=== PATIENT | female | born 1945 | race Caucasian/White ===

== ENCOUNTER 2023-06-13 21:34 | Inpatient (IN) | payer MEDICARE ==
[~2023-06-13] VITALS: Ht 162.6 cm; Wt 70.0 kg
[2023-06-13] MEDS ORDERED: SODIUM CHLORIDE 0.9% 1,000 ML IV ONE (21:45)
[2023-06-13] MEDS ORDERED: IOHEXOL 350 MG/ML 100 ML VIAL ONE (21:51)
[2023-06-13] MEDS ORDERED: SODIUM CHLORIDE 0.9% 100 ML ONE (21:51)
[2023-06-13 21:53] LABS: COVID AG,FIA SOURCE NASAL SWAB
[2023-06-13 22:21] LABS: ANION GAP 9 mmol/L (8-16); CALCIUM, TOTAL 8.4 mg/dL (8.8-10.5); CARBON DIOXIDE 25 mmol/L (22-29); CHLORIDE 107 mmol/L (98-107); CREATININE 0.73 mg/dL (0.60-1.30); GLOMERULAR FILTR. RATE CALC > 60 mL/min (>60); GLUCOSE,RANDOM 144 mg/dL (70-110); POTASSIUM 3.4 mmol/L (3.5-5.1); SODIUM SERUM 141 mmol/L (136-145); UREA NITROGEN, BLOOD 12 mg/dL (7-18)
[2023-06-13 22:24] LABS: SARS-COV2 (COVID) ANTIGEN,FIA Negative (Negative)
[2023-06-13 22:24] LABS: B-TYPE NATRIURETIC PEPTIDE 105 pg/mL (0-100)
[2023-06-13 22:27] LABS: PROTHROMBIN TIME 10.8 SEC (9.4-11.6)
[2023-06-13 22:45] LABS: ALANINE AMINOTRANSFERASE 13 U/L (12-78); ALKALINE PHOSPHATASE 81 U/L (46-116); ASPARTATE AMINOTRANSFERASE 17 U/L (15-37); BILIRUBIN,TOTAL 0.3 mg/dL (0.1-1.0); CREATINE KINASE, TOTAL ONLY 92 U/L (26-192); TOTAL PROTEIN, SERUM 5.7 g/dL (6.4-8.2)
[2023-06-13 22:49] LABS: TROPONIN I-HIGH SENSITIVITY 9 ng/L (<51)
[2023-06-13 23:14] LABS: BASOPHILS % (AUTO) 1.3 % (0.0-2.0); HEMATOCRIT 32.5 % (36-46); HEMOGLOBIN 10.8 g/dL (12.0-16.0); LYMPHOCYTES # (AUTO) 2.6 K/uL (1.0-4.8); LYMPHOCYTES % (AUTO) 31.8 % (22.0-44.0); MEAN CORPUSCULAR HEMOGLOBIN 29.2 pg (26.0-34.0); MEAN CORPUSCULAR HGB CONC 33.2 G/dL (31.0-37.0); MEAN CORPUSCULAR VOLUME 88 fL (80-100); MONOCYTES # (AUTO) 0.8 K/uL (0.1-1.0); MONOCYTES % (AUTO) 10.3 % (2.0-9.0); NEUTROPHILS # (AUTO) 4.4 K/uL (1.8-7.7); NEUTROPHILS % (AUTO) 54.6 % (40.0-70.0); PLATELET COUNT (AUTO) 160 K/uL (150-450); RED BLOOD CELL COUNT(AUTO) 3.69 MIL/uL (4.00-5.20); RED CELL DISTRIBUTION WIDTH 17.5 % (11.5-14.5)
[2023-06-13] MEDS ORDERED: INSLAN SQ (23:39)
[2023-06-13] MEDS ORDERED: SIMV-259 PO (23:39)
[2023-06-13] MEDS ORDERED: BENZ-227 PO (23:39)
[2023-06-13] MEDS ORDERED: LISI-892 PO (23:39)
[2023-06-13] MEDS ORDERED: GUAI5LIQ PO (23:39)
[2023-06-13] MEDS ORDERED: SODI45SP10 NASAL (23:39)
[2023-06-13] MEDS ORDERED: INSU100V SQ (23:39)
[2023-06-14] VITALS (7 sets, daily range): BP systolic 94–134; BP diastolic 54–71; PULSE 94–116; RESP 16–18; TEMP 98–98.6; O2SAT 99
[2023-06-14] MEDS ORDERED: ACETAMINOPHEN 325 MG TABLET PO PRN (01:15)
[2023-06-14] MEDS ORDERED: 0.9% SODIUM CHLORIDE 10 ML SYRINGE IVP PRN (01:15)
[2023-06-14] MEDS ORDERED: ONDANSETRON HCL 4 MG/2 ML VIAL IVP PRN ×2 (01:15)
[2023-06-14] MEDS: RINGERS SOLUTION,LACTATED 1,000 ML IV SCH ×2 (01:23→15:16)
[2023-06-14 02:14] LABS: TROPONIN I-HIGH SENSITIVITY 182 ng/L (<51)
[2023-06-14 02:46] LABS: GLUCOMETER DEV NAME(LOC) ERT.5; GLUCOSE,POINT OF CARE 134 MG/DL (70-110)
[2023-06-14] MEDS ORDERED: HEPARIN SODIUM,PORCINE 5,000 UNITS/ML VIAL IVP PRN (06:30)
[2023-06-14] MEDS ORDERED: ASPIRIN 81 MG CHEWABLE TABLET PO ONE (06:30)
[2023-06-14] MEDS ORDERED: ATORVASTATIN CALCIUM 40 MG TABLET PO ONE (06:30)
[2023-06-14] MEDS ORDERED: HEPARIN SODIUM,PORCINE 5,000 UNITS/ML VIAL IVP ONE (06:30)
[2023-06-14] MEDS: METOPROLOL TARTRATE 25 MG TABLET PO SCH ×2 (06:50→21:05)
[2023-06-14 07:03] LABS: BASOPHILS % (AUTO) 0.4 % (0.0-2.0); EOSINOPHILS % (AUTO) 0 % (1.0-6.0); HEMATOCRIT 35.8 % (36-46); HEMOGLOBIN 11.7 g/dL (12.0-16.0); LYMPHOCYTES # (AUTO) 1.2 K/uL (1.0-4.8); LYMPHOCYTES % (AUTO) 8.9 % (22.0-44.0); MEAN CORPUSCULAR HEMOGLOBIN 28.7 pg (26.0-34.0); MEAN CORPUSCULAR HGB CONC 32.8 G/dL (31.0-37.0); MEAN CORPUSCULAR VOLUME 88 fL (80-100); MONOCYTES # (AUTO) 0.9 K/uL (0.1-1.0); MONOCYTES % (AUTO) 6.8 % (2.0-9.0); NEUTROPHILS # (AUTO) 11.3 K/uL (1.8-7.7); NEUTROPHILS % (AUTO) 83.9 % (40.0-70.0); PLATELET COUNT (AUTO) 167 K/uL (150-450); RED BLOOD CELL COUNT(AUTO) 4.09 MIL/uL (4.00-5.20); RED CELL DISTRIBUTION WIDTH 16.8 % (11.5-14.5); WHITE BLOOD COUNT (AUTO) 13.5 K/uL (4.5-11.0)
[2023-06-14] MEDS: HEPARIN SODIUM 25000 UNITS/D5W 250 ML IV PRN (07:10)
[2023-06-14 07:33] LABS: TROPONIN I-HIGH SENSITIVITY 1156 ng/L (<51)
[2023-06-14] MEDS ORDERED: MAGNESIUM SULFATE 2 GM/WATER 50 ML IV PRN (08:00)
[2023-06-14] MEDS ORDERED: POTASSIUM CHLORIDE 20 MEQ ER TABLET PO PRN (08:00)
[2023-06-14] MEDS ORDERED: HEPARIN SODIUM,PORCINE 5,000 UNITS/ML VIAL SQ SCH (08:00)
[2023-06-14] MEDS ORDERED: POTASSIUM CHL 10 MEQ/WATER 50 ML IV PRN (08:00)
[2023-06-14] MEDS ORDERED: MAGNESIUM SULFATE 4 GM/WATER 100 ML IV PRN (08:00)
[2023-06-14] MEDS ORDERED: DEXTROSE 50%-WATER 25 GM/50 ML SYRINGE IVP PRN (08:15)
[2023-06-14] MEDS: DOCUSATE SODIUM 100 MG CAPSULE PO SCH ×2 (09:00→21:00)
[2023-06-14 10:51] LABS: TROPONIN I-HIGH SENSITIVITY 2625 ng/L (<51)
[2023-06-14] MEDS: INSULIN LISPRO 100 UNITS/ML SQ PRN ×3 (14:16→23:24)
[2023-06-14 14:41] LABS: TROPONIN I-HIGH SENSITIVITY 2115 ng/L (<51)
[2023-06-14 16:52] LABS: GLUCOMETER DEV NAME(LOC) 5S.2C; GLUCOSE,POINT OF CARE 315 MG/DL (70-110)
[2023-06-14] MEDS: HEPARIN SODIUM,PORCINE 5,000 UNITS/ML VIAL IVP PRN (20:58)
[2023-06-14 23:31] LABS: GLUCOMETER DEV NAME(LOC) 5N.1C; GLUCOSE,POINT OF CARE 247 MG/DL (70-110)
[2023-06-15] VITALS (15 sets, daily range): BP systolic 109–134; BP diastolic 55–73; PULSE 74–88; RESP 16–20; TEMP 97.8–98.8; O2SAT 92–100
[2023-06-15] MEDS: BUDESONIDE 0.5 MG/2 ML NEB SOLUTION NEB SCH ×3 (00:06→20:59)
[2023-06-15 06:06] LABS: GLUCOMETER DEV NAME(LOC) 5S.1B; GLUCOSE,POINT OF CARE 226 MG/DL (70-110)
[2023-06-15] MEDS: INSULIN LISPRO 100 UNITS/ML SQ PRN ×4 (06:52→21:03)
[2023-06-15 06:59] LABS: BASOPHILS % (AUTO) 0.9 % (0.0-2.0); EOSINOPHILS % (AUTO) 2.1 % (1.0-6.0); HEMOGLOBIN 9.7 g/dL (12.0-16.0); LYMPHOCYTES # (AUTO) 1.8 K/uL (1.0-4.8); LYMPHOCYTES % (AUTO) 15.1 % (22.0-44.0); MEAN CORPUSCULAR HEMOGLOBIN 29.1 pg (26.0-34.0); MEAN CORPUSCULAR HGB CONC 33.4 G/dL (31.0-37.0); MEAN CORPUSCULAR VOLUME 87 fL (80-100); MONOCYTES % (AUTO) 8.3 % (2.0-9.0); NEUTROPHILS # (AUTO) 8.6 K/uL (1.8-7.7); NEUTROPHILS % (AUTO) 73.6 % (40.0-70.0); PLATELET COUNT (AUTO) 120 K/uL (150-450); RED BLOOD CELL COUNT(AUTO) 3.33 MIL/uL (4.00-5.20); RED CELL DISTRIBUTION WIDTH 17.1 % (11.5-14.5); WHITE BLOOD COUNT (AUTO) 11.7 K/uL (4.5-11.0)
[2023-06-15 07:21] LABS: CHOL/HDL RATIO 2.1 (3.9-5.7)
[2023-06-15 07:23] LABS: ANION GAP 7 mmol/L (8-16); CALCIUM, TOTAL 7.8 mg/dL (8.8-10.5); CARBON DIOXIDE 24 mmol/L (22-29); CHLORIDE 105 mmol/L (98-107); CREATININE 0.68 mg/dL (0.60-1.30); GLOMERULAR FILTR. RATE CALC > 60 mL/min (>60); GLUCOSE,RANDOM 200 mg/dL (70-110); POTASSIUM 3.7 mmol/L (3.5-5.1); SODIUM SERUM 136 mmol/L (136-145); UREA NITROGEN, BLOOD 15 mg/dL (7-18)
[2023-06-15] MEDS: ASPIRIN 81 MG CHEWABLE TABLET PO SCH (08:35)
[2023-06-15] MEDS: METOPROLOL TARTRATE 25 MG TABLET PO SCH ×2 (08:35→21:00)
[2023-06-15] MEDS: ATORVASTATIN CALCIUM 20 MG TABLET PO SCH (08:35)
[2023-06-15] MEDS: DOCUSATE SODIUM 100 MG CAPSULE PO SCH ×2 (08:35→21:00)
[2023-06-15] MEDS: MULTIVITAMINS WITH MINERALS, THERAPEUTIC TABLET PO SCH (08:35)
[2023-06-15] MEDS: RINGERS SOLUTION,LACTATED 1,000 ML IV SCH ×2 (08:36→21:11)
[2023-06-15 08:51] LABS: GLUCOMETER DEV NAME(LOC) 5N.2C; GLUCOSE,POINT OF CARE 211 MG/DL (70-110)
[2023-06-15] MEDS ORDERED: ATORVASTATIN CALCIUM 40 MG TABLET PO SCH (09:00)
[2023-06-15] MEDS: MAGNESIUM OXIDE 400 MG TABLET PO PRN ×2 (11:08→20:59)
[2023-06-15 12:25] LABS: APPEARANCE,URINE CLEAR (CLEAR); BILIRUBIN,URINE NEGATIVE (NEGATIVE); COLOR,URINE LIGHT YELLOW (YELLOW); GLUCOSE, URINE (UA) 300-500 mg/dL (NEGATIVE); KETONES,URINE NEGATIVE (NEGATIVE); LEUKOCYTE ESTERASE ,URINE NEGATIVE (NEGATIVE); NITRATE,URINE NEGATIVE (NEGATIVE); OCCULT BLOOD,URINE SMALL (NEGATIVE); PH,URINE 5.5 (5.0-8.0); PROTEIN,URINE 100-200,SEE CONFIRM mg/dL (NEGATIVE); SPECIFIC GRAVITIY, URINE 1.008 (1.003-1.030); UROBILINOGEN,URINE <=1.0 mg/dL (<=1.0)
[2023-06-15 12:37] LABS: ALCOHOL, URINE DRUG SCREEN NEGATIVE (NEGATIVE); AMPHET/METH SCREEN,URINE NEGATIVE (NEGATIVE); BARBITURATE SCREEN, URINE NEGATIVE (NEGATIVE); BENZODIAZEPINES SCREEN,URINE NEGATIVE (NEGATIVE); CANNABINOID SCREEN,URINE NEGATIVE (NEGATIVE); COCAINE SCREEN,URINE NEGATIVE (NEGATIVE); METHADONE SCREEN, URINE NEGATIVE (NEGATIVE); OPIATE SCREEN,URINE NEGATIVE (NEGATIVE); PHENCYCLIDINE SCREEN,URINE NEGATIVE (NEGATIVE)
[2023-06-15 12:45] LABS: PH,URINE DRUG SCREEN 5.5 (5.0-8.0)
[2023-06-15] MEDS: HEPARIN SODIUM,PORCINE 5,000 UNITS/ML VIAL IVP PRN (12:46)
[2023-06-15 13:25] LABS: GLUCOMETER DEV NAME(LOC) 5N.2C; GLUCOSE,POINT OF CARE 295 MG/DL (70-110)
[2023-06-15 13:34] LABS: BACTERIA,URINE None Seen /HPF (None Seen); RBC,URINE 0-2 /HPF (0-2); SQUAMOUS EPITHELIAL CELL,UR Few /LPF (None Seen); SULFOSALICYLIC ACID,URINE 2+ (Negative); WBC,URINE None Seen /HPF (0-5)
[2023-06-15 18:21] LABS: GLUCOMETER DEV NAME(LOC) 5S.1B; GLUCOSE,POINT OF CARE 211 MG/DL (70-110)
[2023-06-16] VITALS (9 sets, daily range): BP systolic 112–130; BP diastolic 54–70; PULSE 66–82; RESP 16–19; TEMP 98–98.7; O2SAT 95–98
[2023-06-16] MEDS: HEPARIN SODIUM 25000 UNITS/D5W 250 ML IV PRN (01:04)
[2023-06-16 06:41] LABS: GLUCOMETER DEV NAME(LOC) 5N.1C; GLUCOSE,POINT OF CARE 253 MG/DL (70-110)
[2023-06-16] MEDS: ASPIRIN 81 MG CHEWABLE TABLET PO SCH (08:31)
[2023-06-16] MEDS: MULTIVITAMINS WITH MINERALS, THERAPEUTIC TABLET PO SCH (08:32)
[2023-06-16] MEDS: ATORVASTATIN CALCIUM 20 MG TABLET PO SCH (08:32)
[2023-06-16] MEDS: METOPROLOL TARTRATE 25 MG TABLET PO SCH ×2 (08:32→22:05)
[2023-06-16] MEDS: DOCUSATE SODIUM 100 MG CAPSULE PO SCH ×2 (08:38→21:00)
[2023-06-16] MEDS: MAGNESIUM OXIDE 400 MG TABLET PO PRN ×2 (08:43→17:59)
[2023-06-16] MEDS: HEPARIN SODIUM,PORCINE 5,000 UNITS/ML VIAL IVP PRN (08:52)
[2023-06-16 09:06] LABS: GLUCOMETER DEV NAME(LOC) 5N.2C; GLUCOSE,POINT OF CARE 135 MG/DL (70-110)
[2023-06-16] MEDS: BUDESONIDE 0.5 MG/2 ML NEB SOLUTION NEB SCH ×2 (09:17→19:26)
[2023-06-16] MEDS: RINGERS SOLUTION,LACTATED 1,000 ML IV SCH (11:41)
[2023-06-16] MEDS: INSULIN LISPRO 100 UNITS/ML SQ PRN ×3 (12:17→22:30)
[2023-06-16 12:57] LABS: GLUCOMETER DEV NAME(LOC) 5N.1C; GLUCOSE,POINT OF CARE 330 MG/DL (70-110)
[2023-06-16 18:17] LABS: GLUCOMETER DEV NAME(LOC) 5N.1C; GLUCOSE,POINT OF CARE 198 MG/DL (70-110)
[2023-06-16 22:56] LABS: GLUCOMETER DEV NAME(LOC) 5S.1B; GLUCOSE,POINT OF CARE 329 MG/DL (70-110)
[2023-06-17] VITALS (11 sets, daily range): BP systolic 98–136; BP diastolic 59–72; PULSE 62–78; RESP 16–20; TEMP 98–98.8; O2SAT 92–98
[2023-06-17] MEDS: RINGERS SOLUTION,LACTATED 1,000 ML IV SCH ×2 (01:20→15:53)
[2023-06-17] MEDS: INSULIN LISPRO 100 UNITS/ML SQ PRN ×3 (06:58→21:35)
[2023-06-17] MEDS: DOCUSATE SODIUM 100 MG CAPSULE PO SCH ×2 (08:19→21:37)
[2023-06-17] MEDS: ATORVASTATIN CALCIUM 20 MG TABLET PO SCH (08:19)
[2023-06-17] MEDS: MAGNESIUM OXIDE 400 MG TABLET PO PRN ×3 (08:19→15:52)
[2023-06-17] MEDS: MULTIVITAMINS WITH MINERALS, THERAPEUTIC TABLET PO SCH (08:19)
[2023-06-17] MEDS: ASPIRIN 81 MG CHEWABLE TABLET PO SCH (08:20)
[2023-06-17] MEDS: METOPROLOL TARTRATE 25 MG TABLET PO SCH ×2 (08:20→21:38)
[2023-06-17] MEDS: BUDESONIDE 0.5 MG/2 ML NEB SOLUTION NEB SCH ×2 (09:02→19:24)
[2023-06-17 09:08] LABS: ANION GAP 6 mmol/L (8-16); CALCIUM, TOTAL 8.4 mg/dL (8.8-10.5); CARBON DIOXIDE 28 mmol/L (22-29); CHLORIDE 104 mmol/L (98-107); CREATININE 0.64 mg/dL (0.60-1.30); GLOMERULAR FILTR. RATE CALC > 60 mL/min (>60); GLUCOSE,RANDOM 223 mg/dL (70-110); POTASSIUM 3.6 mmol/L (3.5-5.1); SODIUM SERUM 138 mmol/L (136-145); UREA NITROGEN, BLOOD 15 mg/dL (7-18)
[2023-06-17 09:11] LABS: BASOPHILS % (AUTO) 1.2 % (0.0-2.0); EOSINOPHILS % (AUTO) 3.8 % (1.0-6.0); HEMATOCRIT 28.9 % (36-46); HEMOGLOBIN 9.6 g/dL (12.0-16.0); LYMPHOCYTES % (AUTO) 23.3 % (22.0-44.0); MEAN CORPUSCULAR HEMOGLOBIN 29.2 pg (26.0-34.0); MEAN CORPUSCULAR HGB CONC 33.4 G/dL (31.0-37.0); MEAN CORPUSCULAR VOLUME 87 fL (80-100); MONOCYTES % (AUTO) 11.9 % (2.0-9.0); NEUTROPHILS # (AUTO) 5.1 K/uL (1.8-7.7); NEUTROPHILS % (AUTO) 59.8 % (40.0-70.0); PLATELET COUNT (AUTO) 130 K/uL (150-450); RED CELL DISTRIBUTION WIDTH 16.9 % (11.5-14.5); WHITE BLOOD COUNT (AUTO) 8.5 K/uL (4.5-11.0)
[2023-06-17] MEDS: HEPARIN SODIUM 25000 UNITS/D5W 250 ML IV PRN (17:45)
[2023-06-17 20:36] LABS: GLUCOMETER DEV NAME(LOC) 5N.2C; GLUCOSE,POINT OF CARE 145 MG/DL (70-110)
[2023-06-17 21:31] LABS: GLUCOMETER DEV NAME(LOC) 5S.1B; GLUCOSE,POINT OF CARE 272 MG/DL (70-110)
[2023-06-17] MEDS: INSULIN GLARGINE,HUM.REC.ANLOG 100 UNITS/ML SQ SCH (21:37)
[2023-06-17 22:16] LABS: GLUCOMETER DEV NAME(LOC) 5N.1C; GLUCOSE,POINT OF CARE 217 MG/DL (70-110)
[2023-06-17 22:16] LABS: GLUCOMETER DEV NAME(LOC) 5N.1C; GLUCOSE,POINT OF CARE 232 MG/DL (70-110)
[2023-06-18] VITALS (10 sets, daily range): BP systolic 98–116; BP diastolic 57–70; PULSE 74–102; RESP 14–20; TEMP 98.1–101.4; O2SAT 90–97
[2023-06-18] MEDS: INSULIN LISPRO 100 UNITS/ML SQ PRN ×3 (06:13→20:48)
[2023-06-18 06:56] LABS: BASOPHILS % (AUTO) 1.2 % (0.0-2.0); EOSINOPHILS % (AUTO) 3.5 % (1.0-6.0); HEMATOCRIT 28.3 % (36-46); HEMOGLOBIN 9.5 g/dL (12.0-16.0); LYMPHOCYTES # (AUTO) 1.8 K/uL (1.0-4.8); LYMPHOCYTES % (AUTO) 23.3 % (22.0-44.0); MEAN CORPUSCULAR HEMOGLOBIN 29.4 pg (26.0-34.0); MEAN CORPUSCULAR HGB CONC 33.7 G/dL (31.0-37.0); MEAN CORPUSCULAR VOLUME 87 fL (80-100); MONOCYTES % (AUTO) 12.4 % (2.0-9.0); NEUTROPHILS # (AUTO) 4.6 K/uL (1.8-7.7); NEUTROPHILS % (AUTO) 59.6 % (40.0-70.0); PLATELET COUNT (AUTO) 140 K/uL (150-450); RED BLOOD CELL COUNT(AUTO) 3.24 MIL/uL (4.00-5.20); RED CELL DISTRIBUTION WIDTH 17.1 % (11.5-14.5); WHITE BLOOD COUNT (AUTO) 7.8 K/uL (4.5-11.0)
[2023-06-18 07:11] LABS: ANION GAP 7 mmol/L (8-16); CARBON DIOXIDE 27 mmol/L (22-29); CHLORIDE 105 mmol/L (98-107); CREATININE 0.68 mg/dL (0.60-1.30); GLOMERULAR FILTR. RATE CALC > 60 mL/min (>60); GLUCOSE,RANDOM 154 mg/dL (70-110); POTASSIUM 3.7 mmol/L (3.5-5.1); SODIUM SERUM 139 mmol/L (136-145); UREA NITROGEN, BLOOD 14 mg/dL (7-18)
[2023-06-18 07:36] LABS: TROPONIN I-HIGH SENSITIVITY 235 ng/L (<51)
[2023-06-18] MEDS: BUDESONIDE 0.5 MG/2 ML NEB SOLUTION NEB SCH ×2 (08:04→20:22)
[2023-06-18] MEDS: METOPROLOL TARTRATE 25 MG TABLET PO SCH ×2 (09:00→20:40)
[2023-06-18] MEDS: RINGERS SOLUTION,LACTATED 1,000 ML IV SCH (09:51)
[2023-06-18] MEDS: MULTIVITAMINS WITH MINERALS, THERAPEUTIC TABLET PO SCH (09:51)
[2023-06-18] MEDS: ASPIRIN 81 MG CHEWABLE TABLET PO SCH (09:52)
[2023-06-18] MEDS: ATORVASTATIN CALCIUM 20 MG TABLET PO SCH (09:52)
[2023-06-18] MEDS: DOCUSATE SODIUM 100 MG CAPSULE PO SCH ×2 (09:52→20:39)
[2023-06-18 10:13] LABS: PROTHROMBIN TIME 10.2 SEC (9.4-11.6)
[2023-06-18] MEDS ORDERED: GELATIN SPONGE,ABSORBABLE 12-7 MM TP ONE ×2 (13:36→14:33)
[2023-06-18] MEDS ORDERED: FentaNYL CITRATE PF 100 MCG/2 ML VIAL ONE (14:04)
[2023-06-18] MEDS ORDERED: LIDOCAINE/PF 1% 30 ML VIAL ONE ×2 (14:04→15:13)
[2023-06-18] MEDS ORDERED: MIDAZOLAM HCL 2 MG/2 ML VIAL ONE (14:04)
[2023-06-18] MEDS ORDERED: FentaNYL CITRATE PF 100 MCG/2 ML VIAL IVP ONE (15:30)
[2023-06-18] MEDS ORDERED: LIDOCAINE 1% 30 ML/SOD BICARB 8.4% 4 ML SQ ONE (15:30)
[2023-06-18] MEDS ORDERED: MIDAZOLAM HCL 2 MG/2 ML VIAL IVP ONE (15:30)
[2023-06-18] MEDS: HEPARIN SODIUM 25000 UNITS/D5W 250 ML IV PRN (17:20)
[2023-06-18] MEDS: INSULIN GLARGINE,HUM.REC.ANLOG 100 UNITS/ML SQ SCH (20:43)
[2023-06-18] MEDS: ACETAMINOPHEN 325 MG TABLET PO PRN (22:50)
[2023-06-18 23:41] LABS: GLUCOMETER DEV NAME(LOC) 5S.1B; GLUCOSE,POINT OF CARE 121 MG/DL (70-110)
[2023-06-18 23:41] LABS: GLUCOMETER DEV NAME(LOC) 5S.1B; GLUCOSE,POINT OF CARE 143 MG/DL (70-110)
[2023-06-19] VITALS (20 sets, daily range): BP systolic 97–141; BP diastolic 48–81; PULSE 70–88; RESP 14–18; TEMP 98.2–100.9; O2SAT 96–100
[2023-06-19 00:51] LABS: GLUCOMETER DEV NAME(LOC) 5N.2C; GLUCOSE,POINT OF CARE 158 MG/DL (70-110)
[2023-06-19 00:51] LABS: GLUCOMETER DEV NAME(LOC) 5N.2C; GLUCOSE,POINT OF CARE 207 MG/DL (70-110)
[2023-06-19] MEDS ORDERED: LIDOCAINE/PF 1% 30 ML VIAL ONE (06:54)
[2023-06-19] MEDS ORDERED: SODIUM BICARBONATE 50 MEQ/50 ML VIAL ONE (06:54)
[2023-06-19] MEDS ORDERED: IOHEXOL 300 MG/ML 100 ML VIAL ONE (06:54)
[2023-06-19] MEDS ORDERED: HEPARIN SODIUM 1000 UNITS/NS 1,000 ML ONE (06:55)
[2023-06-19] MEDS ORDERED: HEPARIN SODIUM,PORCINE 1,000 UNITS/ML 10 ML VIAL ONE (06:56)
[2023-06-19] MEDS ORDERED: VERAPAMIL HCL 2.5 MG/ML 2 ML VIAL ONE (06:56)
[2023-06-19] MEDS ORDERED: NITROGLYCERIN 50 MG/D5% WATER 250 ML ONE (06:56)
[2023-06-19] MEDS: RINGERS SOLUTION,LACTATED 1,000 ML IV SCH ×2 (07:00→21:56)
[2023-06-19] MEDS ORDERED: MIDAZOLAM HCL 2 MG/2 ML VIAL ONE (07:48)
[2023-06-19] MEDS ORDERED: FentaNYL CITRATE PF 100 MCG/2 ML VIAL ONE (07:48)
[2023-06-19] MEDS ORDERED: VERAPAMIL HCL 2.5 MG/ML 2 ML VIAL IARTER ONE (08:00)
[2023-06-19] MEDS ORDERED: NITROGLYCERIN/D5W 50 MG/250 ML IV BOTTLE IARTER ONE (08:00)
[2023-06-19] MEDS ORDERED: HEPARIN SODIUM 2,000 UNITS in HEPARIN SODIUM 1000 UNITS/NS 1,000 ML IARTER ONE (08:00)
[2023-06-19] MEDS ORDERED: LIDOCAINE 1% 30 ML/SOD BICARB 8.4% 4 ML SQ ONE (08:00)
[2023-06-19] MEDS ORDERED: HEPARIN SODIUM,PORCINE 1,000 UNITS/ML 10 ML VIAL IARTER ONE (08:00)
[2023-06-19] MEDS ORDERED: IOHEXOL 300 MG/ML 100 ML VIAL ICOR ONE (08:00)
[2023-06-19] MEDS ORDERED: HEPARIN SODIUM,PORCINE 1,000 UNITS/ML 10 ML VIAL IV ONE (08:15)
[2023-06-19] MEDS ORDERED: FentaNYL CITRATE PF 100 MCG/2 ML VIAL IVP ONE (08:15)
[2023-06-19] MEDS ORDERED: MIDAZOLAM HCL 2 MG/2 ML VIAL IVP ONE (08:15)
[2023-06-19] MEDS ORDERED: HEPARIN SODIUM,PORCINE 1,000 UNITS/ML 10 ML VIAL IVP ONE (08:30)
[2023-06-19] MEDS ORDERED: TICAGRELOR 90 MG TABLET PO ONE (08:30)
[2023-06-19] MEDS ORDERED: ASPIRIN 81 MG CHEWABLE TABLET PO ONE (08:30)
[2023-06-19] MEDS ORDERED: ASPIRIN 81 MG CHEWABLE TABLET ONE (08:36)
[2023-06-19] MEDS ORDERED: TICAGRELOR 90 MG TABLET ONE (08:36)
[2023-06-19] MEDS: DOCUSATE SODIUM 100 MG CAPSULE PO SCH ×2 (09:00→21:55)
[2023-06-19] MEDS: METOPROLOL TARTRATE 25 MG TABLET PO SCH ×2 (09:00→21:55)
[2023-06-19] MEDS: BUDESONIDE 0.5 MG/2 ML NEB SOLUTION NEB SCH ×2 (09:49→20:57)
[2023-06-19] MEDS: ATORVASTATIN CALCIUM 20 MG TABLET PO SCH (12:33)
[2023-06-19] MEDS: ASPIRIN 81 MG CHEWABLE TABLET PO SCH (12:34)
[2023-06-19] MEDS: MULTIVITAMINS WITH MINERALS, THERAPEUTIC TABLET PO SCH (12:34)
[2023-06-19 18:01] LABS: GLUCOMETER DEV NAME(LOC) 5N.2C; GLUCOSE,POINT OF CARE 113 MG/DL (70-110)
[2023-06-19 18:01] LABS: GLUCOMETER DEV NAME(LOC) 5N.2C; GLUCOSE,POINT OF CARE 112 MG/DL (70-110)
[2023-06-19] MEDS: INSULIN LISPRO 100 UNITS/ML SQ PRN ×2 (18:05→22:03)
[2023-06-19] MEDS: TICAGRELOR 90 MG TABLET PO SCH (21:55)
[2023-06-19] MEDS: INSULIN GLARGINE,HUM.REC.ANLOG 100 UNITS/ML SQ SCH (21:59)
[2023-06-19 22:36] LABS: GLUCOMETER DEV NAME(LOC) 5N.2C; GLUCOSE,POINT OF CARE 187 MG/DL (70-110)
[2023-06-19 22:36] LABS: GLUCOMETER DEV NAME(LOC) 5N.2C; GLUCOSE,POINT OF CARE 231 MG/DL (70-110)
[2023-06-20] VITALS (11 sets, daily range): BP systolic 112–133; BP diastolic 59–84; PULSE 68–93; RESP 16–18; TEMP 97.6–102; O2SAT 63–100
[2023-06-20] MEDS: ACETAMINOPHEN 325 MG TABLET PO PRN ×2 (00:15→20:18)
[2023-06-20 07:16] LABS: GLUCOMETER DEV NAME(LOC) 5N.2C; GLUCOSE,POINT OF CARE 151 MG/DL (70-110)
[2023-06-20] MEDS: BUDESONIDE 0.5 MG/2 ML NEB SOLUTION NEB SCH ×2 (08:00→20:20)
[2023-06-20] MEDS: ASPIRIN 81 MG CHEWABLE TABLET PO SCH (09:18)
[2023-06-20] MEDS: ATORVASTATIN CALCIUM 20 MG TABLET PO SCH (09:18)
[2023-06-20] MEDS: TICAGRELOR 90 MG TABLET PO SCH ×2 (09:18→20:17)
[2023-06-20] MEDS: DOCUSATE SODIUM 100 MG CAPSULE PO SCH ×2 (09:18→20:17)
[2023-06-20] MEDS: METOPROLOL TARTRATE 25 MG TABLET PO SCH ×2 (09:19→20:17)
[2023-06-20] MEDS: MULTIVITAMINS WITH MINERALS, THERAPEUTIC TABLET PO SCH (09:19)
[2023-06-20] MEDS: RINGERS SOLUTION,LACTATED 1,000 ML IV SCH (09:26)
[2023-06-20 17:16] LABS: GLUCOMETER DEV NAME(LOC) 5S.1B; GLUCOSE,POINT OF CARE 231 MG/DL (70-110)
[2023-06-20] MEDS: INSULIN LISPRO 100 UNITS/ML SQ PRN ×2 (17:56→20:29)
[2023-06-20] MEDS: PANTOPRAZOLE SODIUM 40 MG DR TABLET PO SCH (17:59)
[2023-06-20 18:16] LABS: GLUCOMETER DEV NAME(LOC) 5N.2C; GLUCOSE,POINT OF CARE 216 MG/DL (70-110)
[2023-06-20] MEDS: INSULIN GLARGINE,HUM.REC.ANLOG 100 UNITS/ML SQ SCH (20:28)
[2023-06-20 22:34] LABS: APPEARANCE,URINE CLEAR (CLEAR); BILIRUBIN,URINE NEGATIVE (NEGATIVE); COLOR,URINE YELLOW (YELLOW); GLUCOSE, URINE (UA) >=1000 mg/dL (NEGATIVE); KETONES,URINE NEGATIVE (NEGATIVE); LEUKOCYTE ESTERASE ,URINE NEGATIVE (NEGATIVE); NITRATE,URINE NEGATIVE (NEGATIVE); OCCULT BLOOD,URINE LARGE (NEGATIVE); PH,URINE 6.5 (5.0-8.0); PROTEIN,URINE >600,SEE CONFIRM mg/dL (NEGATIVE); SPECIFIC GRAVITIY, URINE 1.025 (1.003-1.030); UROBILINOGEN,URINE <=1.0 mg/dL (<=1.0)
[2023-06-20 22:43] LABS: BACTERIA,URINE Rare /HPF (None Seen); SULFOSALICYLIC ACID,URINE 4+ (Negative); WBC,URINE 0-2 /HPF (0-5)
[2023-06-20 22:44] LABS: SQUAMOUS EPITHELIAL CELL,UR Few /LPF (None Seen)
[2023-06-20 23:46] LABS: GLUCOMETER DEV NAME(LOC) 5N.1C; GLUCOSE,POINT OF CARE 257 MG/DL (70-110)
[2023-06-21] VITALS (13 sets, daily range): BP systolic 87–135; BP diastolic 48–74; PULSE 68–112; RESP 16–20; TEMP 97.8–102.3; O2SAT 96–99
[2023-06-21] MEDS: ACETAMINOPHEN 325 MG TABLET PO PRN ×2 (04:31→20:42)
[2023-06-21] MEDS: RINGERS SOLUTION,LACTATED 1,000 ML IV SCH ×2 (04:33→13:30)
[2023-06-21] MEDS ORDERED: PNEUMOCOCCAL VACCINE POLYVALENT 0.5 ML SYRINGE [PPSV23] IM. ONE (05:15)
[2023-06-21] MEDS ORDERED: INFLUENZA VIRUS VACCINE QVS 2023-24 (6MO+)/PF 60 MCG/0.5 ML SYRINGE IM. ONE (05:15)
[2023-06-21 06:47] LABS: GLUCOMETER DEV NAME(LOC) 5N.1C; GLUCOSE,POINT OF CARE 97 MG/DL (70-110)
[2023-06-21] MEDS: BUDESONIDE 0.5 MG/2 ML NEB SOLUTION NEB SCH ×2 (07:12→19:36)
[2023-06-21 07:50] LABS: BASOPHILS % (AUTO) 0.5 % (0.0-2.0); EOSINOPHILS % (AUTO) 0.2 % (1.0-6.0); HEMATOCRIT 25.4 % (36-46); HEMOGLOBIN 8.8 g/dL (12.0-16.0); LYMPHOCYTES # (AUTO) 0.8 K/uL (1.0-4.8); LYMPHOCYTES % (AUTO) 8.3 % (22.0-44.0); MEAN CORPUSCULAR HEMOGLOBIN 29.5 pg (26.0-34.0); MEAN CORPUSCULAR HGB CONC 34.6 G/dL (31.0-37.0); MEAN CORPUSCULAR VOLUME 85 fL (80-100); MONOCYTES # (AUTO) 1.2 K/uL (0.1-1.0); MONOCYTES % (AUTO) 12.8 % (2.0-9.0); NEUTROPHILS # (AUTO) 7.2 K/uL (1.8-7.7); NEUTROPHILS % (AUTO) 78.2 % (40.0-70.0); PLATELET COUNT (AUTO) 135 K/uL (150-450); RED BLOOD CELL COUNT(AUTO) 2.98 MIL/uL (4.00-5.20); RED CELL DISTRIBUTION WIDTH 16.9 % (11.5-14.5); WHITE BLOOD COUNT (AUTO) 9.2 K/uL (4.5-11.0)
[2023-06-21 08:01] LABS: ALBUMIN 1.6 g/dL (3.4-5.0); ANION GAP 9 mmol/L (8-16); CALCIUM, TOTAL 7.6 mg/dL (8.8-10.5); CARBON DIOXIDE 26 mmol/L (22-29); CHLORIDE 101 mmol/L (98-107); CREATININE 0.84 mg/dL (0.60-1.30); GLOMERULAR FILTR. RATE CALC > 60 mL/min (>60); GLUCOSE,RANDOM 94 mg/dL (70-110); SODIUM SERUM 135 mmol/L (136-145); UREA NITROGEN, BLOOD 18 mg/dL (7-18)
[2023-06-21] MEDS ORDERED: *CLINICAL-CEFEPIME DOSING CLINICAL ONE (08:30)
[2023-06-21] MEDS: DOCUSATE SODIUM 100 MG CAPSULE PO SCH ×2 (08:35→20:42)
[2023-06-21] MEDS: ASPIRIN 81 MG CHEWABLE TABLET PO SCH (08:35)
[2023-06-21] MEDS: TICAGRELOR 90 MG TABLET PO SCH ×2 (08:35→20:42)
[2023-06-21] MEDS: MULTIVITAMINS WITH MINERALS, THERAPEUTIC TABLET PO SCH (08:36)
[2023-06-21] MEDS: ATORVASTATIN CALCIUM 20 MG TABLET PO SCH (08:36)
[2023-06-21] MEDS: PANTOPRAZOLE SODIUM 40 MG DR TABLET PO SCH (08:36)
[2023-06-21] MEDS: METOPROLOL TARTRATE 25 MG TABLET PO SCH ×2 (09:00→20:42)
[2023-06-21] MEDS: CEFEPIME HCL 1 GM in DEXTROSE 5%-WATER 50 ML IV SCH ×2 (09:13→20:41)
[2023-06-21 14:05] LABS: ALANINE AMINOTRANSFERASE 21 U/L (12-78); ALKALINE PHOSPHATASE 71 U/L (46-116); ASPARTATE AMINOTRANSFERASE 45 U/L (15-37); BILIRUBIN,TOTAL 0.4 mg/dL (0.1-1.0); TOTAL PROTEIN, SERUM 5.1 g/dL (6.4-8.2)
[2023-06-21 16:59] LABS: COVID AG,FIA SOURCE NASAL SWAB
[2023-06-21 17:28] LABS: SARS-COV2 (COVID) ANTIGEN,FIA Negative (Negative)
[2023-06-21] MEDS: INSULIN GLARGINE,HUM.REC.ANLOG 100 UNITS/ML SQ SCH (20:58)
[2023-06-21] MEDS: INSULIN LISPRO 100 UNITS/ML SQ PRN (20:59)
[2023-06-22] VITALS (11 sets, daily range): BP systolic 100–164; BP diastolic 43–73; PULSE 68–93; RESP 16–19; TEMP 98.3–100.2; O2SAT 96–98
[2023-06-22] MEDS: RINGERS SOLUTION,LACTATED 1,000 ML IV SCH ×2 (04:07→14:38)
[2023-06-22 04:46] LABS: GLUCOMETER DEV NAME(LOC) 5N.2C; GLUCOSE,POINT OF CARE 170 MG/DL (70-110)
[2023-06-22 06:32] LABS: GLUCOMETER DEV NAME(LOC) 5N.1C; GLUCOSE,POINT OF CARE 150 MG/DL (70-110)
[2023-06-22 07:06] LABS: HEMATOCRIT 28.7 % (36-46); HEMOGLOBIN 9.7 g/dL (12.0-16.0); MEAN CORPUSCULAR HEMOGLOBIN 29.5 pg (26.0-34.0); MEAN CORPUSCULAR HGB CONC 33.9 G/dL (31.0-37.0); MEAN CORPUSCULAR VOLUME 87 fL (80-100); PLATELET COUNT (AUTO) 163 K/uL (150-450); RED BLOOD CELL COUNT(AUTO) 3.31 MIL/uL (4.00-5.20); RED CELL DISTRIBUTION WIDTH 17.4 % (11.5-14.5); WHITE BLOOD COUNT (AUTO) 7.5 K/uL (4.5-11.0)
[2023-06-22 07:14] LABS: ANION GAP 7 mmol/L (8-16); CALCIUM, TOTAL 7.7 mg/dL (8.8-10.5); CARBON DIOXIDE 26 mmol/L (22-29); CHLORIDE 105 mmol/L (98-107); GLOMERULAR FILTR. RATE CALC > 60 mL/min (>60); GLUCOSE,RANDOM 103 mg/dL (70-110); POTASSIUM 3.5 mmol/L (3.5-5.1); SODIUM SERUM 138 mmol/L (136-145); UREA NITROGEN, BLOOD 14 mg/dL (7-18)
[2023-06-22 08:35] LABS: BAND NEUTROPHILS % (MANUAL) 0 % (0-5)
[2023-06-22 08:36] LABS: LYMPHOCYTES % (MANUAL) 36 % (22-44); MONOCYTES % (MANUAL) 3 % (2-9); SEGMENTED NEUTROPHILS % 61 % (40-70); TOTAL CELLS COUNTED 100
[2023-06-22 08:37] LABS: RBC MORPHOLOGY COMMENT NORMAL RBC MORPH
[2023-06-22] MEDS: BUDESONIDE 0.5 MG/2 ML NEB SOLUTION NEB SCH ×2 (08:38→21:00)
[2023-06-22] MEDS: METOPROLOL TARTRATE 25 MG TABLET PO SCH ×2 (08:54→20:45)
[2023-06-22] MEDS: DOCUSATE SODIUM 100 MG CAPSULE PO SCH ×2 (08:54→20:46)
[2023-06-22] MEDS: ATORVASTATIN CALCIUM 20 MG TABLET PO SCH (08:54)
[2023-06-22] MEDS: TICAGRELOR 90 MG TABLET PO SCH ×2 (08:54→20:46)
[2023-06-22] MEDS: MULTIVITAMINS WITH MINERALS, THERAPEUTIC TABLET PO SCH (08:54)
[2023-06-22] MEDS: PANTOPRAZOLE SODIUM 40 MG DR TABLET PO SCH (08:54)
[2023-06-22] MEDS: CEFEPIME HCL 1 GM in DEXTROSE 5%-WATER 50 ML IV SCH ×2 (08:54→20:45)
[2023-06-22] MEDS: ASPIRIN 81 MG CHEWABLE TABLET PO SCH (08:54)
[2023-06-22] MEDS: INSULIN LISPRO 100 UNITS/ML SQ PRN (17:48)
[2023-06-22 18:41] LABS: GLUCOMETER DEV NAME(LOC) 5N.1C; GLUCOSE,POINT OF CARE 259 MG/DL (70-110)
[2023-06-22] MEDS: INSULIN GLARGINE,HUM.REC.ANLOG 100 UNITS/ML SQ SCH (20:46)
[2023-06-22 23:36] LABS: GLUCOMETER DEV NAME(LOC) 5S.1B; GLUCOSE,POINT OF CARE 84 MG/DL (70-110)
[2023-06-23] VITALS (8 sets, daily range): BP systolic 109–129; BP diastolic 53–80; PULSE 73–89; RESP 16–20; TEMP 98.2–98.9; O2SAT 90–95
[2023-06-23 05:26] LABS: GLUCOMETER DEV NAME(LOC) 5S.1B; GLUCOSE,POINT OF CARE 103 MG/DL (70-110)
[2023-06-23] MEDS: RINGERS SOLUTION,LACTATED 1,000 ML IV SCH ×2 (05:31→17:39)
[2023-06-23 07:16] LABS: BASOPHILS % (AUTO) 0.5 % (0.0-2.0); EOSINOPHILS % (AUTO) 1.9 % (1.0-6.0); HEMATOCRIT 28.1 % (36-46); HEMOGLOBIN 9.4 g/dL (12.0-16.0); LYMPHOCYTES # (AUTO) 1.6 K/uL (1.0-4.8); LYMPHOCYTES % (AUTO) 15.2 % (22.0-44.0); MEAN CORPUSCULAR HGB CONC 33.4 G/dL (31.0-37.0); MEAN CORPUSCULAR VOLUME 87 fL (80-100); MONOCYTES # (AUTO) 1.3 K/uL (0.1-1.0); MONOCYTES % (AUTO) 13.1 % (2.0-9.0); NEUTROPHILS # (AUTO) 7.1 K/uL (1.8-7.7); NEUTROPHILS % (AUTO) 69.3 % (40.0-70.0); PLATELET COUNT (AUTO) 193 K/uL (150-450); RED BLOOD CELL COUNT(AUTO) 3.24 MIL/uL (4.00-5.20); RED CELL DISTRIBUTION WIDTH 17.3 % (11.5-14.5); WHITE BLOOD COUNT (AUTO) 10.3 K/uL (4.5-11.0)
[2023-06-23] MEDS: BUDESONIDE 0.5 MG/2 ML NEB SOLUTION NEB SCH ×2 (07:18→20:43)
[2023-06-23 07:33] LABS: ANION GAP 7 mmol/L (8-16); CALCIUM, TOTAL 7.6 mg/dL (8.8-10.5); CARBON DIOXIDE 27 mmol/L (22-29); CHLORIDE 103 mmol/L (98-107); CREATININE 0.76 mg/dL (0.60-1.30); GLOMERULAR FILTR. RATE CALC > 60 mL/min (>60); GLUCOSE,RANDOM 106 mg/dL (70-110); POTASSIUM 3.5 mmol/L (3.5-5.1); SODIUM SERUM 137 mmol/L (136-145); UREA NITROGEN, BLOOD 13 mg/dL (7-18)
[2023-06-23] MEDS: ASPIRIN 81 MG CHEWABLE TABLET PO SCH (09:19)
[2023-06-23] MEDS: DOCUSATE SODIUM 100 MG CAPSULE PO SCH ×2 (09:19→20:51)
[2023-06-23] MEDS: MULTIVITAMINS WITH MINERALS, THERAPEUTIC TABLET PO SCH (09:20)
[2023-06-23] MEDS: METOPROLOL TARTRATE 25 MG TABLET PO SCH ×2 (09:21→20:51)
[2023-06-23] MEDS: TICAGRELOR 90 MG TABLET PO SCH ×2 (09:21→20:51)
[2023-06-23] MEDS: ATORVASTATIN CALCIUM 20 MG TABLET PO SCH (09:21)
[2023-06-23] MEDS: PANTOPRAZOLE SODIUM 40 MG DR TABLET PO SCH (09:21)
[2023-06-23] MEDS: CEFEPIME HCL 1 GM in DEXTROSE 5%-WATER 50 ML IV SCH ×2 (09:22→20:51)
[2023-06-23] MEDS: INSULIN LISPRO 100 UNITS/ML SQ PRN ×2 (17:39→21:16)
[2023-06-23] MEDS: INSULIN GLARGINE,HUM.REC.ANLOG 100 UNITS/ML SQ SCH (21:15)
[2023-06-23 21:21] LABS: GLUCOMETER DEV NAME(LOC) 5S.2C; GLUCOSE,POINT OF CARE 174 MG/DL (70-110)
[2023-06-24] VITALS (7 sets, daily range): BP systolic 101–121; BP diastolic 5–72; PULSE 67–88; RESP 16–20; TEMP 97.8–98.8; O2SAT 97–99
[2023-06-24 05:32] LABS: GLUCOMETER DEV NAME(LOC) 5N.1C; GLUCOSE,POINT OF CARE 111 MG/DL (70-110)
[2023-06-24 05:32] LABS: GLUCOMETER DEV NAME(LOC) 5S.1B; GLUCOSE,POINT OF CARE 231 MG/DL (70-110)
[2023-06-24 06:06] LABS: GLUCOMETER DEV NAME(LOC) 5N.2C; GLUCOSE,POINT OF CARE 129 MG/DL (70-110)
[2023-06-24] MEDS: BUDESONIDE 0.5 MG/2 ML NEB SOLUTION NEB SCH (08:08)
[2023-06-24] MEDS: MULTIVITAMINS WITH MINERALS, THERAPEUTIC TABLET PO SCH (08:35)
[2023-06-24] MEDS: CEFEPIME HCL 1 GM in DEXTROSE 5%-WATER 50 ML IV SCH (08:35)
[2023-06-24] MEDS: ATORVASTATIN CALCIUM 20 MG TABLET PO SCH (08:36)
[2023-06-24] MEDS: METOPROLOL TARTRATE 25 MG TABLET PO SCH (08:36)
[2023-06-24] MEDS: PANTOPRAZOLE SODIUM 40 MG DR TABLET PO SCH (08:37)
[2023-06-24] MEDS: ASPIRIN 81 MG CHEWABLE TABLET PO SCH (08:37)
[2023-06-24] MEDS: TICAGRELOR 90 MG TABLET PO SCH (08:37)
[2023-06-24] MEDS: DOCUSATE SODIUM 100 MG CAPSULE PO SCH (09:00)
[2023-06-24] MEDS: RINGERS SOLUTION,LACTATED 1,000 ML IV SCH (11:00)
[2023-06-24] MEDS: INSULIN LISPRO 100 UNITS/ML SQ PRN (11:54)
[2023-06-24] MEDS ORDERED: TICA90TA PO (12:29)
[2023-06-24] MEDS ORDERED: PANT-31 PO (12:29)
[2023-06-24] MEDS ORDERED: ATOR20TA65 PO (12:29)
[2023-06-24] MEDS ORDERED: METO25 PO (12:29)
[2023-06-24] MEDS ORDERED: ASPI81 PO (12:29)
[2023-06-24] MEDS ORDERED: AMOX1TAB15 PO (12:29)
[2023-06-24 12:36] LABS: GLUCOMETER DEV NAME(LOC) 5N.2C; GLUCOSE,POINT OF CARE 212 MG/DL (70-110)
[2023-06-24 22:06] LABS: QUANTIFERON+, Nil Value 0.38 IU/mL; QUANTIFERON+,Mitogen Value 0.61 IU/mL; QUANTIFERON+,TB1 Antigen Value 1.68 IU/mL; QUANTIFERON+,TB2 Antigen Value 1.04 IU/mL; QUANTIFERON, TB GOLD PLUS Positive (Negative)
== END 2023-06-24 15:40 | disposition home or self-care (01) | DRG 321 ==
LOC: EMS 21:35 → 5S 06-14 01:00
PROVIDERS: ADMIT Internal Medicine; ATTEND Internal Medicine
PROC: 0BBC3ZX Excision of Right Upper Lung Lobe, Percutaneous Approach, Diagnostic (ICD-10-PCS; 2023-06-18)
PROC: 027034Z Dilation of Coronary Artery, One Artery with Drug-eluting Intraluminal Device, Percutaneous Approach (ICD-10-PCS; principal; 2023-06-19)
PROC: B2111ZZ Fluoroscopy of Multiple Coronary Arteries using Low Osmolar Contrast (ICD-10-PCS; 2023-06-19)
PROC: B240ZZ3 Ultrasonography of Single Coronary Artery, Intravascular (ICD-10-PCS; 2023-06-19)
PROC: 4A023N7 Measurement of Cardiac Sampling and Pressure, Left Heart, Percutaneous Approach (ICD-10-PCS; 2023-06-19)
DX: I21.4 Non-ST elevation (NSTEMI) myocardial infarction (principal); E43 Unspecified severe protein-calorie malnutrition; J18.9 Pneumonia, unspecified organism; I45.2 Bifascicular block; J44.0 Chronic obstructive pulmonary disease with (acute) lower respiratory infection; C34.11 Malignant neoplasm of upper lobe, right bronchus or lung; F10.20 Alcohol dependence, uncomplicated; E11.65 Type 2 diabetes mellitus with hyperglycemia; E78.5 Hyperlipidemia, unspecified; I70.203 Unspecified atherosclerosis of native arteries of extremities, bilateral legs; R04.0 Epistaxis; R09.02 Hypoxemia; D63.8 Anemia in other chronic diseases classified elsewhere; F17.210 Nicotine dependence, cigarettes, uncomplicated; I95.9 Hypotension, unspecified; R00.0 Tachycardia, unspecified; I71.43 Infrarenal abdominal aortic aneurysm, without rupture; E87.6 Hypokalemia; I11.0 Hypertensive heart disease with heart failure; Z20.822 Contact with and (suspected) exposure to COVID-19; K22.89 Other specified disease of esophagus; R55 Syncope and collapse; I50.9 Heart failure, unspecified; I25.10 Atherosclerotic heart disease of native coronary artery without angina pectoris; Z68.26 Body mass index [BMI] 26.0-26.9, adult; Z79.899 Other long term (current) drug therapy; Z90.49 Acquired absence of other specified parts of digestive tract
CPT/HCPCS: 32408; 70450; 71045; 71275; 74175; 75960; 76705; 80048; 80053; 80061; 80076; 80307; 81001; 81002; 82040; 82550; 82962; 83735; 83880; 84132; 84145; 84484; 85025; 85610; 85730; 86480; 86635; 86850; 86900; 86901; 87040; 88305; 88341; 88342; 90945; 92920; 92928; 93005; 93306; 93970; 94640; 97162; 97165; 97535; 99291; G0480; J0692; J1644; J1815; J2250; J3010; J3490; J7050; J7060; J7120; Q9967; 36415-L1; 36415-TC; Z7610